=== PATIENT | female | born 1965 | race Caucasian/White ===

== ENCOUNTER 2022-11-04 14:20 | Outpatient (CLI) | payer OTHER | END 2022-11-04 14:21 | disposition home or self-care (01) | LOC: CSHULT 14:20 | PROVIDERS: ATTEND Student in an Organized Health Care Education/Training Program | DX: R22.1 Localized swelling, mass and lump, neck (principal); E04.1 Nontoxic single thyroid nodule | CPT/HCPCS: 76536 ==

== ENCOUNTER 2024-11-09 14:38 | Outpatient (CLI) | payer BC | END 2024-11-09 14:39 | disposition home or self-care (01) | LOC: CSHMAMMO 14:38 | PROVIDERS: ATTEND Obstetrics & Gynecology | DX: N63.41 Unspecified lump in right breast, subareolar (principal) | CPT/HCPCS: 77066; G0279 ==